=== PATIENT | female | born 1950 | race Caucasian/White ===

== ENCOUNTER 2017-05-31 15:52 | Outpatient (CLI) | payer MEDICARE ==
--- NOTE | 2017-05-31 17:28 | RAD ---
RADIOGRAPH LEFT FOOT 2 VIEWS: 05/31/17 HISTORY: 66-year-old female status post acute foot trauma, due to dropped object on foot. TECHNIQUE: AP and lateral standing views of the left foot were obtained. The reason for the standing views is no t given. FINDINGS: There is no evidence of fracture or dislocation. IMPRESSION: 1. No evidence of fracture. 2. For greater sensitivity for the detection of fractures, in general, a three view radiograph o f the foot is recommended, nonstanding. POS: [facility]
== END 2017-05-31 15:53 | disposition home or self-care (01) ==
LOC: MADRAD 15:52
PROVIDERS: ATTEND Nurse Practitioner Family
DX: S90.32XA Contusion of left foot, initial encounter (principal)

== ENCOUNTER 2025-03-11 16:02 | Emergency (ER) | payer MEDICARE ==
[2025-03-11] MEDS ORDERED: HYDROcodone/Acetaminophen 5/325 mg Tablet ONE (16:32)
== END 2025-03-11 17:06 | disposition home or self-care (01) ==
LOC: MADERS 16:02
DX: R22.41 Localized swelling, mass and lump, right lower limb (principal)
CPT/HCPCS: 99283